=== PATIENT | male | born 1950 | race Caucasian/White ===

== ENCOUNTER 2020-08-13 07:21 | Outpatient (CLI) | payer MEDICARE, BC ==
--- NOTE | 2020-08-13 08:25 | CT ---
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 Possible thoracic aortic aneurysm on ultrasound performed at [facility] physician's office. TECHNIQUE: IV injection of iodinated contrast. Scan acquisition timing attempted to coincide with iodinated contrast bolus reaching maximal density in the thoracic aorta. 3-D MIP reconstructions. FINDINGS: The thoracic aorta is mildly tortuous, both the ascending and descending portions. Aortic caliber: Aortic root: 3 cm Mid ascending aorta: 3.7 cm. Aortic arch: 3 cm. Descending thoracic aorta: 2.9 cm. No thoracic aortic dissection, aneurysm, or rupture. Scattered multifocal mild calcified atherosclerotic plaque in ascending, descending thoracic aorta, a nd arch. No cardiomegaly or pericardial effusion. No mediastinal or hilar lymphadenopathy. Trachea and major bronchi are patent and clear. No consolidation, suspicious pulmonary nodule, or groundglass lesions. No pleural effusion or pneumothorax. Prominent atherosclerotic calcification of coronary arteries, especially LAD, diagonal, RCA, and left main. Large number of focal hypodense lesions throughout the liver, ranging from a few millimeters for the smaller ones, up to 6.8 cm from the largest one in the left lobe. At least most of these are cysts. Suture line abutting the undersurface of the left lobe of liver leading to esophagogastric junction. No splenomegaly. Mild to moderate multilevel thoracic spine degenerative disc disease. IMPRESSION: 1) no thoracic aortic aneurysm. 2) mild tortuosity and mild atherosclerosis of thoracic aorta. 3) coronary atherosclerosis due to calcified coronary lesion: ICD-10: I 25.84 4) large number of hepatic cysts. 5) evidence for previous epigastric abdominal surgery.
[2020-08-13] MEDS ORDERED: Iopamidol 370 76% 100 ML VIAL ONE (14:38)
== END 2020-08-13 07:22 | disposition home or self-care (01) ==
LOC: BICCT 07:21
PROVIDERS: ATTEND Internal Medicine Cardiovascular Disease
DX: I77.810 Thoracic aortic ectasia (principal); I70.0 Atherosclerosis of aorta; I25.84 Coronary atherosclerosis due to calcified coronary lesion; Q25.46 Tortuous aortic arch; K76.89 Other specified diseases of liver; Z98.890 Other specified postprocedural states
CPT/HCPCS: 71275; 82565; Q9967

== ENCOUNTER 2020-10-01 08:20 | Outpatient (CLI) | payer MEDICARE, BC ==
--- NOTE | 2020-10-01 08:45 | RAD ---
TWO VIEWS OF THE CHEST: DATE: 10/01/2020. COMPARISON: None. HISTORY: Shortness of breath. FINDINGS: Thee is a granuloma in the right costophrenic angle region. No pneumothorax or pleural fluid. No fo brigitte consolidation or alveolar edema. Multilevel mild midthoracic spine degenerative change. IMPRESSION: No radiographic evidence of acute cardiopulmonary disease. POS: [facility]
== END 2020-10-01 08:21 | disposition home or self-care (01) ==
LOC: BICRAD 08:20
PROVIDERS: ATTEND Internal Medicine Critical Care Medicine
DX: R06.00 Dyspnea, unspecified (principal)
CPT/HCPCS: 71046